=== PATIENT | female | born 1965 ===

== ENCOUNTER → 2019-03-13 12:06 | Outpatient (CLI) | payer OTHER, MEDICAID, SELFPAY ==
--- NOTE | 2019-03-13 | DI.MRI.S_ITS ---
PROCEDURE: MR HEAD/BRAIN WO/W CON INDICATIONS: PARASTHESIA OF SKIN TECHNIQUE: Noncontrast axial T1 spin echo, axial T2 fast spin echo, sagittal and axial FLAIR, coronal T2 fast spin echo, axial gradient echo, axial diffusion and ADC through the brain. After the administration of contrast, axial and coronal 3D VIBE or T1 spin echo with fat saturation through the brain. COMPARISON: None. FINDINGS: Image quality: Excellent. CSF Spaces: Basal cisterns are patent. No extra-axial fluid collections. Ventricles are normal in size and shape. Brain: No midline shift. No intracranial bleeds. There are approximately 12-18 T2/FLAIR hyperintense foci within the periventricular and subcortical white matter, with the largest measuring 13 mm in the right frontal lobe. Focus is also identified within the corpus callosum. No abnormal intracranial enhancement. The brainstem appears normal. Diffusion-weighted images demonstrate no acute ischemic insults. No chronic ischemic insults. Normal intravascular flow voids are present. Skull and face: Calvarial marrow is normal in signal. Orbits appear normal. Sinuses: Sinuses and mastoids appear clear. IMPRESSION: 1. Multifocal T2/FLAIR hyperintensities within the periventricular and subcortical white matter as well as the corpus callosal lesion. While these could represent areas of chronic microvascular ischemia, given patient's age and corpus callosal focus, demyelinating disease should be considered. No foci demonstrate restricted diffusion or enhancement. Dictated by: Jeri Narayan M.D. on 03/13/2019 at 15:25 Approved by: Jeri Narayan M.D. on 03/13/2019 at 15:39
== END ==
PROVIDERS: Visit Provider Psychiatry & Neurology Neurology
DX: R20.2 Paresthesia of skin (principal)
CPT/HCPCS: 70553; A9579

== ENCOUNTER → 2020-09-22 09:48 | Outpatient (CLI) | payer OTHER, SELFPAY | PROVIDERS: PCP Physician Assistant Medical; Visit Provider Specialist | DX: N39.46 Mixed incontinence (principal) | CPT/HCPCS: 51798; 81002; 87086; 99214 ==

== ENCOUNTER → 2020-11-03 14:58 | Outpatient (CLI) | payer OTHER, SELFPAY | PROVIDERS: PCP Physician Assistant Medical; Referring Provider Specialist; Visit Provider Specialist | DX: Z01.812 Encounter for preprocedural laboratory examination (principal) | CPT/HCPCS: 87077; 87086 ==